=== PATIENT | female | born 1995 | race Caucasian/White ===

== ENCOUNTER 2020-07-27 11:12 | Outpatient (CLI) | payer OTHER, SELFPAY ==
[2020-07-27 18:46] LABS: Basophils Absolute Auto 0.1 K/mm3 (0.0-0.1); Basophils Percent Auto 0.7 % (0.2-1.2); Eosinophils Absolute Auto 0.1 K/mm3 (0-0.3); Eosinophils Percent Auto 1.3 % (0-4.4); Hematocrit 44.3 % (37.0-47.0); Hemoglobin 14.6 g/dL (12.0-15.0); Immature Granulocyte Absolute 0.02 K/mm3 (0.00-0.031); Immature Granulocyte Percent A 0.3 % (0-0.5); Lymphocytes Absolute Auto 1.78 K/mm3 (0.9-3.2); Lymphocytes Percent Auto 25.1 % (18.3-44.2); Mean Corpuscular Hemoglobin 30.2 pg (26-34); Mean Corpuscular Volume 91.7 fl (80-100); Mean Platelet Volume 12.3 fl (7.4-10.4); Monocytes Absolute Auto 0.6 K/mm3 (0.1-0.6); Monocytes Percent Auto 8.1 % (2.6-8.5); Neutrophils Absolute Auto 4.6 K/mm3 (1.3-6.7); Neutrophils Percent Auto 64.5 % (45.5-73.1); Platelet Count Result 257 k/mm3 (150-375); Red Blood Count 4.83 M/mm3 (4.2-5.4); Red Cell Distribution Width 13.6 % (11.5-14.5); White Blood Count 7.1 K/mm3 (4.5-10.0)
[2020-07-27 19:18] LABS: Hepatitis B Surface Antigen Negative (Negative)
[2020-07-27 19:28] LABS: HIV 1/2 Ab P24 Ag Result Negative (Negative)
[2020-07-27 19:34] LABS: Hepatitis C Virus Antibody Negative (Negative)
[2020-07-27 20:08] LABS: Rubella IgG Antibody > 120.0 IU/ML
[2020-07-28 13:47] LABS: Rapid Plasma Reagin Non-Reactive (NonReactive)
== END 2020-07-27 11:13 | disposition home or self-care (01) ==
PROVIDERS: Visit Provider Obstetrics & Gynecology
DX: Z34.90 Encounter for supervision of normal pregnancy, unspecified, unspecified trimester (principal); Z3A.00 Weeks of gestation of pregnancy not specified
CPT/HCPCS: 36415; 85025; 86592; 86703; 86762; 86803; 86850; 86900; 86901; 87340; G0432

== ENCOUNTER 2020-11-05 12:54 | Outpatient (CLI) | payer OTHER, SELFPAY ==
--- NOTE | ~2020-11-05 | US_ITS ---
EXAMINATION: US OB /maternal detail DATE: 11/05/2020 14:27 INDICATION: Second trimester anatomic survey TECHNIQUE: Real-time ultrasound of the pelvis was performed. COMPARISON: None. FINDINGS: There is a single living fetus in vertex presentation. The placenta is anterior and 7.4 cm from the i nternal cervical os. heart rate is 148 beats per minute (bpm). cardiac activity and feta l movement are noted. The amniotic fluid index is subjectively normal. The diaphragm is not imaged. The following anatomy was identified as normal: 4 chamber heart 3 vessel cord cord insertion kidneys urinary bladder stomach spine ventricles cisterna magna cerebellum The following biometric data were obtained: Biparietal diameter (BPD): 4.8 cm; head circumference (HC): 17.5 cm; abdominal circumference (AC): 13 .9 cm; femur length (FL): 3.0 cm. These measurements are concordant. Estimated weight is 295 g +/- 44 g, which correlates with the 26th percentile when 03/26/2021 i s used as estimated date of delivery. As single measurements, these parameters are each equal to the following estimated gestational ages w ith ranges of +/- 2 standard deviations: BPD: 20 weeks 5 days +/- 1 weeks 5 days. HC: 20 weeks 1 days +/- 1 weeks 3 days. AC: 19 weeks 2 days +/- 2 weeks 0 days. FL: 19 weeks 3 days +/- 1 weeks 6 days. estimated gestational age based solely on measurements from this exam is 19 weeks 6 days +/- 1 weeks 3 days. IMPRESSION: 1. Single living fetus in vertex presentation. 2. Estimated weight is 295 g +/- 44 g, which correlates with the 26th percentile when is used as estimated date of delivery. 3. Diaphragm not imaged. Recommend return for evaluation of diaphragm integrity. Reviewed, dictated and finalized at location B. IMPRESSION: 1. Single living fetus in vertex presentation. 2. Estimated weight is 295 g +/- 44 g, which correlates with the 26th per centile when 03/26/2021 is used as estimated date of delivery. 3. Diaphragm not imaged. Recommend return for evaluation of diaphragm integrity .
== END 2020-11-05 12:55 | disposition home or self-care (01) ==
LOC: ANHIMG 13:01
PROVIDERS: PCP Obstetrics & Gynecology; Visit Provider Obstetrics & Gynecology
DX: Z34.92 Encounter for supervision of normal pregnancy, unspecified, second trimester (principal); Z3A.19 19 weeks gestation of pregnancy
CPT/HCPCS: 76805

== ENCOUNTER 2020-12-24 10:56 | Outpatient (CLI) | payer OTHER, SELFPAY ==
--- NOTE | ~2020-12-24 | US_ITS ---
US OB limited DATE: 12/24/2020 11:26 INDICATION: diaphragm was not imaged on 11/05/2020 obstetrical ultrasound examination TECHNIQUE: Limited real-time ultrasound examination and Doppler COMPARISON: 11/05/2020 obstetrical ultrasound FINDINGS: Live ramirez intrauterine gestation, fetus in vertex presentation, longitudinal lie, with heart rate of 139 bpm. The diaphragm appears intact. Anterior placenta, lower margin 9 cm above the internal os. Subjectively normal amount of amniotic fl uid IMPRESSION: diaphragm appears intact Reviewed, dictated and finalized at Location [facility]. Reviewed, dictated and finalized at location B. IMPRESSION: diaphragm appears intact
== END 2020-12-24 10:57 | disposition home or self-care (01) ==
LOC: ANHIMG 11:02
PROVIDERS: PCP Obstetrics & Gynecology; Visit Provider Obstetrics & Gynecology
DX: Z36.9 Encounter for antenatal screening, unspecified (principal); Z3A.00 Weeks of gestation of pregnancy not specified
CPT/HCPCS: 76815

== ENCOUNTER 2020-12-28 08:07 | Outpatient (CLI) | payer OTHER, SELFPAY ==
[2020-12-29 10:34] LABS: Basophils Percent Auto 0.4 % (0.2-1.2); Eosinophils Absolute Auto 0.1 K/mm3 (0-0.3); Eosinophils Percent Auto 0.7 % (0-4.4); Hematocrit 42.8 % (37.0-47.0); Hemoglobin 12.9 g/dL (12.0-15.0); Immature Granulocyte Absolute 0.03 K/mm3 (0.00-0.031); Immature Granulocyte Percent A 0.4 % (0-0.5); Lymphocytes Absolute Auto 1.44 K/mm3 (0.9-3.2); Lymphocytes Percent Auto 17.8 % (18.3-44.2); Mean Corpuscular HGB Conc 30.1 g/dl (32-36); Mean Corpuscular Hemoglobin 30.2 pg (26-34); Mean Corpuscular Volume 100.2 fl (80-100); Mean Platelet Volume 12.7 fl (7.4-10.4); Monocytes Absolute Auto 0.4 K/mm3 (0.1-0.6); Monocytes Percent Auto 5.1 % (2.6-8.5); Neutrophils Absolute Auto 6.1 K/mm3 (1.3-6.7); Neutrophils Percent Auto 75.6 % (45.5-73.1); Platelet Count Result 191 k/mm3 (150-375); Red Blood Count 4.27 M/mm3 (4.2-5.4); Red Cell Distribution Width 14.3 % (11.5-14.5); White Blood Count 8.1 K/mm3 (4.5-10.0)
[2020-12-29 10:39] LABS: Glucose 1 Hour PP 50gm Dose 99 mg/dL
[2020-12-31 07:50] LABS: Rapid Plasma Reagin Non-Reactive (NonReactive)
[2021-01-01 10:59] LABS: HIV 1 2 Ag Ab 4th Gen w Rflxs Non-reactive (Non-reactive)
== END 2020-12-28 08:08 | disposition home or self-care (01) ==
LOC: ANHBWCLAB 08:09
PROVIDERS: PCP Obstetrics & Gynecology; Visit Provider Obstetrics & Gynecology
DX: Z34.90 Encounter for supervision of normal pregnancy, unspecified, unspecified trimester (principal); Z3A.00 Weeks of gestation of pregnancy not specified
CPT/HCPCS: 36415; 82947; 85025; 86592; 87389

== ENCOUNTER 2021-03-21 06:16 | Inpatient (IN) | payer OTHER, SELFPAY ==
[2021-03-21] VITALS (130 sets, daily range): BP systolic 83–128; BP diastolic 24–85; PULSE 48–147; RESP 18; TEMP 36.3–37; O2SAT 82–100; BMI 35.7
[2021-03-21 07:24] LABS: Basophils Percent Auto 0.3 % (0.2-1.2); Eosinophils Absolute Auto 0.1 K/mm3 (0-0.3); Eosinophils Percent Auto 0.9 % (0-4.4); Hematocrit 38.2 % (37.0-47.0); Hemoglobin 12.9 g/dL (12.0-15.0); Immature Granulocyte Absolute 0.03 K/mm3 (0.00-0.031); Immature Granulocyte Percent A 0.3 % (0-0.5); Lymphocytes Absolute Auto 1.24 K/mm3 (0.9-3.2); Lymphocytes Percent Auto 11.8 % (18.3-44.2); Mean Corpuscular HGB Conc 33.8 g/dl (32-36); Mean Corpuscular Hemoglobin 30.4 pg (26-34); Mean Corpuscular Volume 89.9 fl (80-100); Mean Platelet Volume 12.5 fl (7.4-10.4); Monocytes Absolute Auto 0.8 K/mm3 (0.1-0.6); Monocytes Percent Auto 7.7 % (2.6-8.5); Neutrophils Absolute Auto 8.4 K/mm3 (1.3-6.7); Platelet Count Result 201 k/mm3 (150-375); Red Blood Count 4.25 M/mm3 (4.2-5.4); Red Cell Distribution Width 13.5 % (11.5-14.5); White Blood Count 10.6 K/mm3 (4.5-10.0)
--- NOTE | 2021-03-21 07:42 | PM.IMHP ---
H&P: HPI History of Present Illness Date/Time: 03/21/21 07:42 at 39+2 with h/o LTCS who wants induction of labor for TOLAC/. She has frequent ctx, no leaking fluid or bleeding. + movement. Chief Complaint: induction of labor, previous C section Review of Systems Review of Systems: All systems reviewed & are unremarkable except as noted in HPI and below PMFSH Past Medical History Medical History History of blood transfusion 2019, with delivery for torn uterus during the delivery Migraines Surgical History Surgical History Previous section x1 [place] teeth extracted Family History Family History Father Acute myocardial infarction Hypertension Mother Hypertension Social History Social History Smoking status: Never smoker Alcohol intake: former Alcohol use details: prior to Substance use: never Spiritual care concerns: No Meds Home Medications and Allergies Home Medications Medication Instructions Recorded Confirmed Type cholecalciferol (vitamin D3) 50 50 mcg PO DAILY 07/27/20 02/28/21 History mcg (2,000 unit) capsule docosahexaenoic acid 200 mg capsule 200 mg PO DAILY 07/27/20 02/28/21 History magnesium 30 mg tablet 30 mg PO DAILY 07/27/20 02/28/21 History ondansetron 4 mg disintegrating 4 mg PO Q6H PRN #30 tablet 10/06/20 02/28/21 Rx tablet Allergies Allergy/AdvReac Type Severity Reaction Status Date / Time No Known Allergies Allergy Verified 03/15/21 09:43 Exam Const: General: healthy appearing, no acute distress, alert and awake Resp: Auscultation: clear to auscultation bilaterally Cardio: Rate: regular rate Rhythm: regular rhythm GI: Inspection: non-distended GI Palp: Yes Soft to palpation, No Tenderness to palpation present (GI) and Yes Other GI palpation findings present (gravid) : Manual OB Exam: dilated 4 cm, effaced 50% and station -2 Amniotic Fluid: clear (AROM with copious clear yellow fluid, IUPC placed easily) Extrem: General: no pedal edema and no calf tenderness Psych: Mental Status: mental status grossly normal H&P: Results Labs Labs: Short CBC 03/21/21 Range/Units 07:18 WBC 10.6 H (4.5-10.0) K/mm3 Hgb 12.9 (12.0-15.0) g/dL Hct 38.2 (37.0-47.0) % Plt Count 201 (150-375) k/mm3 Assessment and Plan Assessment and plan (1) Encounter for induction of labor: Code(s): Z34.90 - Encounter for supervision of normal , unspecified, unspecified trimester Status: Acute Assessment and Plan: at 39+2 for TOLAC, AROM performed and IUPC placed. Start pitocin and advance slowly with aid of IUPC. She is considering having epidural placed without dosing, in case she would need urgent C section. Fetus reassuring. GBS negative (2) Previous delivery affecting : Code(s): O34.219 - Maternal care for unspecified type scar from previous delivery Status: Acute Assessment and Plan: We have discussed risks, benefits, complications, and alternatives of TOLAC/ multiple times throughout and again today. She expressed understanding and wishes to proceed with induction for TOAC/
[2021-03-21] MEDS: OXYTOCIN 30 UNITS/NS 500 ML 30 UNITS/500 ML BAG IV CONT (07:54)
[2021-03-21] MEDS: LACTATED RINGERS 1,000 ML 125 ML IV CONT ×2 (07:54→11:52)
--- NOTE | 2021-03-21 09:14 | LDADM ---
This patient, Neva Cox, was admitted to Labor/Delivery/Recovery 102 on 03/21/21 at 06:16. Plans for labor, pain management and were discussed with patient. Patient/family oriented to hospital policies and general routines including ID bracelet, bed and alarms, visiting hours, pain management, procedures, bathroom and other care routines, personal items, smoking policy, room service/diet and guest tray routines, security routines, and visiting hours. Patient/Family are encouraged to report perceived risks to care and to ask questions if they do not understand what they are told or what they should do. See OBIX for further documentation.
--- NOTE | 2021-03-21 11:49 | WPDANESEPP ---
Anes - Eval Pre Procedure Procedure: Labor Epidural Date/Time: 03/21/21 11:49 Surgeon: Robe Preop Diagnosis: Labor Pain Pre Op Diagnosis: Induction of Labor Patient Data Age: 26 Gender: F Height: 1.65 m Weight: 97.5 kg Allergies Allergy/AdvReac Type Severity Reaction Status Date / Time No Known Allergies Allergy Verified 03/15/21 09:43 Home Medications Medication Instructions Recorded Confirmed Type cholecalciferol (vitamin D3) 50 50 mcg PO DAILY 07/27/20 02/28/21 History mcg (2,000 unit) capsule docosahexaenoic acid 200 mg capsule 200 mg PO DAILY 07/27/20 02/28/21 History magnesium 30 mg tablet 30 mg PO DAILY 07/27/20 02/28/21 History ondansetron 4 mg disintegrating 4 mg PO Q6H PRN #30 tablet 10/06/20 02/28/21 Rx tablet Laboratory Tests 03/21/21 03/21/21 03/21/21 07:18 07:18 07:18 WBC 10.6 K/mm3 H K/mm3 (4.5-10.0) RBC 4.25 M/mm3 M/mm3 (4.2-5.4) Hgb 12.9 g/dL g/dL (12.0-15.0) Hct 38.2 % % (37.0-47.0) MCV 89.9 fl fl (80-100) MCH 30.4 pg pg (26-34) MCHC 33.8 g/dl g/dl (32-36) RDW 13.5 % % (11.5-14.5) Plt Count 201 k/mm3 k/mm3 (150-375) MPV 12.5 fl H fl (7.4-10.4) Immature Gran % (Auto) 0.3 % % (0-0.5) Neut % (Auto) 79.0 % H % (45.5-73.1) Lymph % (Auto) 11.8 % L % (18.3-44.2) [place] % (Auto) 7.7 % % (2.6-8.5) Eos % (Auto) 0.9 % % (0-4.4) Baso % (Auto) 0.3 % % (0.2-1.2) Lymph # (Auto) 1.24 K/mm3 K/mm3 (0.9-3.2) [place] # (Auto) 0.8 K/mm3 H K/mm3 (0.1-0.6) Eos # (Auto) 0.1 K/mm3 K/mm3 (0-0.3) Baso # (Auto) 0.0 K/mm3 K/mm3 (0.0-0.1) Abs Immat Gran (auto) 0.03 K/mm3 K/mm3 (0.00-0.031) Absolute Neuts (auto) 8.4 K/mm3 H K/mm3 (1.3-6.7) Absolute Nucleated RBC 0.0 K/mm3 K/mm3 (0.0-0.012) Nucleated RBC % 0.0 % % (0.0-0.2) RPR Pending Blood Type O Positive Antibody Screen Negative Patient hx anesthesia problems: none Family hx anesthesia problems: none Results Review: All pre-operative results and documents have been reviewed as part of the pre-operative evaluation. [facility] Past Medical History Medical History History of blood transfusion 2019, with delivery for torn uterus during the delivery Migraines Surgical History Surgical History Previous section x1 [place] teeth extracted Family History Family History Father Acute myocardial infarction Hypertension Mother Hypertension Social History Social History Smoking status: Never smoker Alcohol intake: former Alcohol use details: prior to Substance use: never Spiritual care concerns: No Exam Day of Procedure 03/21/21 11:49 Patient weight: normal Heart: regular rate and rhythm Lungs: normal air movement Airway: Mallampati scale class II Neurological: alert and oriented
--- NOTE | 2021-03-21 14:57 | PM.OBPRVD ---
OB - Delivery Note Procedure Delivery date: 03/21/21 Procedure: events: Previous , Labor Induction and Meconium Stained Fluid Intrapartal events: None Induction method: AROM and per pitocin protocol Delivery monitor: external FHT and internal uterine Route of delivery: Laceration Description: Perineal - 1st Degree Delivery repair: vicryl (3-0) Quantitative Blood Loss (ml): 88 Anesthesia type: Epidural Disposition: floor Baby Date of : 03/21/21 Time of : 14:39 Weeks of gestation at delivery: 39 gender: Female presentation: vertex position: Right Occiput Anterior Placenta delivery description: Spontaneous cord vessel description: 3 Vessels and Clamped/Cut score one minute: 7 score five minutes: 9
[2021-03-21] MEDS: OXYTOCIN 30 UNITS/NS 500 ML 30 UNITS/500 ML BAG 125 UNITS IV CONT (15:13)
[2021-03-21] MEDS: WITCH HAZEL 40 PADS 1 PAD TOPICAL (17:08)
[2021-03-21] MEDS: BENZOCAINE 20% AER SPR (*SP) 56 GM CAN 1 SPRAY TOPICAL (17:08)
--- NOTE | 2021-03-21 19:53 | PC.NURSE ---
Dr. Nagel notified of nasal stuffiness, chest tightness, lung sounds clear and pulse ox. Patient would like to take something for allergies if possible, orders received for regular Claritin to be given.
[2021-03-21] MEDS: LORATADINE 10 MG TABLET PO (20:37)
[2021-03-22 04:30] VITALS: BP 118/74; PULSE 86; RESP 18; TEMP 36.8; O2SAT 98
[2021-03-22 05:58] LABS: Hemoglobin 11.9 g/dL (12.0-15.0)
[2021-03-22 07:30] LABS: Rapid Plasma Reagin Non-Reactive (NonReactive)
[2021-03-22 07:55] VITALS: BP 103/71; PULSE 76; RESP 18; TEMP 36.6; O2SAT 98
--- NOTE | 2021-03-22 07:58 | P.DS_ITS ---
DS: Admitting Diagnosis Discharge Date 03/22/2021 Admitting Diagnosis Induction of labor, previous C section DS: Discharge Diagnosis Discharge Diagnosis (1) , delivered, current hospitalization: Code(s): O34.219 - Maternal care for unspecified type scar from previous delivery Status: Acute OB - DS: Summary OB Procedures : None OB Procedures Intrapartum: OB Procedures: : None Peripartum Data Delivery Method: Natural Vaginal Laceration Description: Perineal - 1st Degree complications: none Status at Discharge Functional status at discharge: independent ambulation Overall status at discharge: patient is progressing back to baseline Time Spent with Patient Time attestation: Total time spent providing and/or coordinating discharge services: Time spent: Less than 30 minutes DS: Data Data Completed and Pending Labs on day of discharge: Labs from last 24 hours 03/22/21 03/21/21 03/21/21 04:32 07:18 07:18 Hgb 11.9 L Hct 35.0 L RPR Non-reactive Blood Type O Positive Antibody Screen Negative Discharge Plan Discharge Attending physician on discharge: Idalia Nagel Discharging Clinician: Idalia Nagel Patient Disposition: Home, Self-Care Activity: may shower and pelvic rest Diet: as tolerated Patient Instructions: Antibiotic Form Stand Alone Forms: General Discharge Information Follow-up/Referrals: Idalia Nagel MD [Physician] - 4 Weeks Discharge Medications: New ibuprofen 600 mg Tablet 600 mg PO Q6H PRN (Reason: Cramping) Qty: 60 RF: 0 Continued magnesium 30 mg tablet 30 mg PO DAILY RF: 0 DHA 200 mg capsule 200 mg PO DAILY RF: 0 cholecalciferol (vitamin D3) 50 mcg (2,000 unit) capsule 50 mcg PO DAILY RF: 0 ondansetron 4 mg tablet,disintegrating 4 mg PO Q6H PRN (Reason: nausea and vomiting) Qty: 30 RF: 0 Date of admission: 03/21/21 06:16 Primary Care Provider: PHYSICIAN,SALES AGENT FINANCIAL REPORT SERVICE Admitting Provider: Idalia Nagel Attending physician on admission: Idalia Nagel Condition: Stable
--- NOTE | 2021-03-22 07:58 | PM.OBPNVD ---
OB - PN: Subj Subjective Date/time seen: 03/22/21 07:58 Patient comments: no complaints, pain well controlled and other (Lochia similar to menses) [place] baby status: doing well OB - PN: Obj Data Labs CBC & Chem 7: 03/22/21 04:32 Labs: Laboratory Results - last 24 hr 03/21/21 03/21/21 03/22/21 07:18 07:18 04:32 Hgb 11.9 L Hct 35.0 L RPR Non-reactive Blood Type O Positive Antibody Screen Negative OB - PN A/P Plan day: 1 (s/p vaginal delivery, doing well) Plan: routine care and discharge home (Follow up in 4-6 weeks) Time Spent With Patient Time: Total time spent is greater than 50% in coordination of care (as documented) at patient's floor/unit and/or counseling patient: Time with patient: less than 15 minutes Exam Const: General: no acute distress GI: Inspection: other (Fundus firm and nontender at umbilicus) GI Palp: Yes Soft to palpation and No Tenderness to palpation present (GI) Extrem: General: no edema
[2021-03-22 08:30] VITALS: PULSE 76; RESP 16; O2SAT 99
--- NOTE | 2021-03-22 09:45 | PC.NURSE ---
Mother called out for assist with feeding, reporting difficulties getting a deep latch. Mother reports left nipple does not draw out as far as right. Mother has been given the latch assist to draw out nipple, she does not feel this offers much assist. Demonstrated how to roll and gentle tug on nipple to draw out. is able to freely thrust tongue past gum ridge and flange both lips. Skin is intact on both nipples, no redness and bruising noted. Reviewed feeding cues, frequencies, duration of feedings, feeding elimination flow sheet, and signs of adequate intake. Demonstrated stimulation techniques to wake for feeding. Assisted with infant to breast. Reviewed positioning/alignment in cross cradle, holding breast in ?U? hold and guided asymmetrical latch on. Reviewed rational for each. Several attempts before infant able to latch correctly and draw nipple in deeply. tends to roll bottom lip in, demonstrated how to roll out lip while feeding. Infant nursed eagerly with steady draws for bursts followed with pausing, occasional swallowing noted, some pausing noted. Reviewed signs of a correct latch, effective nursing and suck swallow ratio. Suggested mother stimulate while feeding to increase stimulate, increase intake and to assist with maintaining deep latch. Infant would slip to shallow latch causing tenderness. Demonstrated how to adjust latch more deeply while feeding if needed. Mother reports she can feel the difference in latch with less tenderness. Nipple care reviewed of lanolin after feedings, warm compresses as needed. Instructed mother to call out for RN assistance if she is unable to latch for feeding or she has discomfort with nursing. Instructed feeding should be initiated three hours from start of last feeding or if feeding cues are noted before. Mother voiced understanding of information shared.
[2021-03-22 12:00] VITALS: PULSE 76; RESP 16; O2SAT 99
--- NOTE | 2021-03-22 12:00 | PC.NURSE ---
1200 consult with pt., mother reports tenderness to both nipples. Mother states she is struggling to get a deep latch. Offered and explained a nipple shield for next feeding. Mother is willing to use.
[2021-03-22 12:14] VITALS: BP 117/70; PULSE 76; RESP 16; TEMP 36.4; O2SAT 99
--- NOTE | 2021-03-22 14:25 | PC.NURSE ---
Attempt to assist mother with latch and nipple shield use. Mother reports she fed without shield. She continues to have tenderness with feedings. Advised mother need to call out for assist with deep latch to prevent nipple tissue breakdown and infant has increased intake with deep latch. Mother would like to initiate pumping. Breast pump provided due to mother's wishes. Instructions given on breast pump care and usage, pumping schedule, nipple care, and collection and storage of breast milk. Encouraged [id number], breast massage and manual expression to stimulate supply. Assessed patient for correct flange size, placement and draw. Patient verbalizes and demonstrates understanding of instructions. Reviewed nipple care of lanolin after feeding, showering and before pumping. Suggested warm compresses to nipples several times per day and gel pads. Requested mother call out for assist next feeding.
--- NOTE | 2021-03-22 15:15 | WPDANLDPN2 ---
Anes-Prog Note L&D Date/Time: 03/22/21 15:15 Comfortable throughout: labor and delivery Neuraxial method: epidural Epidural/Spinal procedure site: clean & non-tender Neuro status: Neuro function grossly intact. Cardiovascular status: normal Respiratory status: normal Airway patency: baseline Mental status: baseline Post-Op hydration status: normal Vital Signs: Last Vital Signs Temp 97.5 F L 03/22/21 12:14 Pulse 76 03/22/21 12:14 Resp 16 03/22/21 12:14 BP 117/70 03/22/21 12:14 Pulse Ox 99 03/22/21 12:14 Pain score (VAS): 0 Post-procedural complaints: none Patient feedback: Patient satisfied with anesthetic care.
[2021-03-22 20:40] VITALS: BP 127/75; PULSE 66; RESP 16; TEMP 36.8; O2SAT 98
--- NOTE | 2021-03-23 08:02 | P.PNOB_ITS ---
OB - PN: Subj Subjective Date/time seen: 03/23/21 08:02 Patient comments: no complaints, pain well controlled and other (Lochia similar to menses) [place] baby status: doing well OB - PN: Obj Data Labs CBC & Chem 7: 03/22/21 04:32 OB - PN A/P Plan day: 2 (s/p vaginal delivery, doing well) Plan: routine care, discharge home and other (Follow up in office in 4 weeks) Time Spent With Patient Time: Total time spent is greater than 50% in coordination of care (as documented) at patient's floor/unit and/or counseling patient: Exam Const: General: no acute distress GI: Inspection: other (Fundus firm and nontender below umbilicus) GI Palp: Yes Soft to palpation and No Tenderness to palpation present (GI) Extrem: General: no edema
[2021-03-23 08:30] VITALS: BP 114/71; PULSE 72; RESP 16; TEMP 36.4; O2SAT 98
[2021-03-23] MEDS: MULTIVIT/MIN/PREN/FOL AC/IRON TABLET 1 TAB PO (09:24)
--- NOTE | 2021-03-23 10:50 | PC.NURSE ---
Consult with pt., mother reports she continues with sore and raw nipples from shallow latch. Mother began bottle feeding during the night due to jaundice, weight loss and low output. Mother has been pumping and offering any EBM she obtains each feeding. Suggested mother attempt to breast using nipple shield to assist with deeper latch. Mother is willing to try. Discussed nipple shield precautions and possible complications. Instructions given on application and cleaning of shield. Patient able to return demonstration on proper application of shield. Discussed the need for regular pumping until milk supply is well established and infant is able to gain weight without supplement, if infant continues to nurse with the shield. Patient verbalizes understanding. Reviewed positioning/alignment in cross cradle, holding breast in ?U? hold and guided asymmetrical latch on. Reviewed rational for each. With shield in place was able to latch correctly once a small amount of formula to shield to entice to feed. nursed eagerly with steady draws and occasional swallowing noted for bursts followed with long pausing. Reviewed signs of a correct latch, effective nursing and suck swallow ratio. Suggested mother stimulate while feeding to increase stimulate, increase intake and to assist with maintaining deep latch. Infant would slip to shallow latch when pausing. Demonstrated how to adjust latch more deeply while feeding if needed. Feeding options discussed, Feeding Plan is for mother to put infant to breast each feeding for up to 15 minutes, then pace feed supplement 20 mls EBM/formula and pump for 10-15 minutes. Parents are comfortable with supplementation and pumping. If begins to nurse effectively with long draws and frequent swallowing noted, infant may decrease supplementation and discontinue pumping. Suggested mother have LC training coordinator observe feeding before discontinuing supplementation. Discussed increasing supplementation as infant requires to satisfactions. Reviewed paced feeding and suggested to stop when is satisfied, as long as is having required output. With increased supplementation may not want to feed for 4 hours. Mother will continue to pump on infant feeding schedule and will increase session to 20 minutes if pumping every 4 hours.
--- NOTE | 2021-03-23 12:00 | PC.NURSE ---
Patient viewed the discharge video Mother & Baby Care, The First Two Weeks . Patient was given the opportunity and encouraged to ask questions. Patient verbalized understanding of information shared and has been given the mother/baby guide for home reference.
--- NOTE | 2021-03-23 12:45 | PC.NURSE ---
Mother called out for assist with feeding. Reviewed positioning/alignment in cross cradle, holding breast in ?U? hold and guided asymmetrical latch on. Reviewed rational for each. With shield in place was able to latch correctly once a small amount of formula to shield to entice to feed. nursed eagerly with steady draws and occasional swallowing noted for bursts followed with long pausing. Reviewed signs of a correct latch, effective nursing and suck swallow ratio. Suggested mother stimulate while feeding to increase stimulate, increase intake and to assist with maintaining deep latch. Infant would slip to shallow latch when pausing. Demonstrated how to adjust latch more deeply while feeding if needed. Mother states she wishes for discharge today. Mother is feeding as required and waking to feed if needed. Infant will continue to be supplemented until seen by follow up RN after all feedings. Mother states she feels confident to continue current feeding plan of putting to breast each feeding, supplementing and pumping at home. Reviewed increasing supplementation as infant requires to satisfactions. Reviewed paced feeding and suggested to stop when infant is satisfied, as long as is having required output. With increased supplementation infant may not want to feed for 4 hours. Mother will continue to pump on feeding schedule and will increase session to 20 minutes if pumping every 4 hours. Reviewed transition to breast milk, signs of adequate intake, and engorgement/relief. Instructed to call ICP if intake/output less than required. Reviewed regular medications mother is taking. Information provided per [place]. Reviewed community resources on the [facility] website and in the Mom/Baby guide. Information on outpatient services provided. Mother has no further questions at this time.
[2021-03-24 08:01] VITALS: BP 125/89; PULSE 86; RESP 20; TEMP 37.4; O2SAT 99
== END 2021-03-23 14:25 | disposition home or self-care (01) | DRG 807 ==
LOC: ANHLDR 06:19 → ANHOB2 17:30
PROVIDERS: Admitting Provider Obstetrics & Gynecology; Visit Provider Obstetrics & Gynecology
DX: O34.211 Maternal care for low transverse scar from previous cesarean delivery (principal); Z37.0 Single live birth; O70.0 First degree perineal laceration during delivery; O76 Abnormality in fetal heart rate and rhythm complicating labor and delivery; O77.0 Labor and delivery complicated by meconium in amniotic fluid; Z3A.39 39 weeks gestation of pregnancy
CPT/HCPCS: 36415; 85014; 85018; 85025; 86592; 86850; 86900; 86901; A9270; J2590; J2795; J7120